=== PATIENT | male | born 1970 | race Caucasian/White ===

== ENCOUNTER 2017-05-14 17:57 | Emergency (ER) | payer MEDICARE, MEDICAID ==
--- NOTE | 2017-05-14 18:09 | Emergency Department Record ---
History of Present Illness - General Chief complaint: Rash Stated complaint: RASH Time Seen by Provider: 05/14/17 18:08 Source: Patient Mode of Arrival: Ambulatory Limitations: No limitations - History of Present Illness Initial comments: The patient is here due to a rash that he has had off and on for 2 weeks. The rash is mainly on the extremities and appears to be small welts that look like bug bites. They are very pruritic and then resolve and he gets new lesions in other areas. The rash is always very itchy. The patient denies any new medicines , pets at home, insect bites or any other patient's with the same rash. He has no hx of similar problems. MD complaint: Lesion, Rash Onset/Timin -: Week(s) Location: Generalized Associated symptoms: Itching Treatments Prior to Arrival: Benadryl, Other - Related Data Home Medications Medication Instructions Recorded Confirmed Last Taken Diphenhydramine HCl [Benadryl] 25 mg PO TID 06/22/15 07/12/15 07/12/15 Previous Rx's Medication Instructions Recorded Gabapentin [Neurontin] 800 mg PO TID #90 tablet 06/22/15 Prednisone [Prednisone 20Mg] 20 mg PO ASDIR #15 tab 05/14/17 Allergies Allergy/AdvReac Type Severity Reaction Status Date / Time codeine Allergy Mild MIGRAINES Unverified 12/02/15 13:00 propoxyphene napsylate Allergy Mild ABDOMINAL Unverified 12/02/15 13:00 [From Darvocet-N] PAIN metaxalone [From Skelaxin] Allergy Unknown PT UNSURE Unverified 12/02/15 13:00 OF REACTION Travel Screening - Travel/Exposure Within Last 30 Days Have you traveled within the last 30 days?: No - Travel/Exposure Within Last Year Have you traveled outside the [place] in the last year?: No Review of Systems Constitutional: Denies: Chills, Fever Eyes: Denies: Eye discharge ENT: Denies: Congestion Respiratory: Denies: Cough, Dyspnea Past Medical History - SOCIAL HISTORY Smoking Status: Former smoker Alcohol Use: Occasional Drug Use: None - RESPIRATORY Hx Respiratory Disorders: No - CARDIOVASCULAR Hx Cardio Disorders: Yes Hx Hypertension: No - NEURO Hx Neuro Disorders: No - GI Hx GI Disorders: Yes Hx Reflux: Yes - Hx Genitourinary Disorders: No - ENDOCRINE Hx Endocrine Disorders: Yes Hx Diabetes: Yes ("they say I am diabetic") - MUSCULOSKELETAL Hx Musculoskeletal Disorders: Yes Hx Back Injury: Yes Comment:: has only 1 bone in R lower leg-removed 1 for bone graft - PSYCH Hx Psych Problems: Yes Hx Anxiety: Yes Comment:: bipolar - HEMATOLOGY/ONCOLOGY Hx Hematology/Oncology Disorders: No Family Medical History Any Significant Family History?: No Family Hx Comment (NOT TO BE USED IN PLACE OF ITEMS BELOW): Arthritis- w/ siblings and parents Hx Depression: Father, Mother, Brother/Sister Hx HTN: Mother, Brother/Sister Physical Exam - General General Appearance: Alert, Oriented x3, Cooperative, No acute distress - Head Head exam: Atraumatic, Normocephalic, Normal inspection - Eye Eye exam: Normal appearance, PERRL - ENT ENT exam: Normal exam, Mucous membranes moist, Normal external ear exam, Normal orophraynx, TM's normal bilaterally Throat exam: Normal inspection. negative: Tonsillar erythema, Tonsillar exudate - Neck Neck exam: Normal inspection, Full ROM. negative: Tenderness - Respiratory Respiratory exam: Normal lung sounds bilaterally. negative: Respiratory distress - Cardiovascular Cardiovascular Exam: Regular rate, Normal rhythm, Normal heart sounds - GI/Abdominal GI/Abdominal exam: Soft, Normal bowel sounds. negative: Tenderness - Extremities Extremities exam: Full ROM, Normal capillary refill. negative: Normal inspection, Tenderness - Neurological Neurological exam: Alert. negative: Motor sensory deficit - Skin Skin exam: Rash (There are small less than one cm welts that are erythematous and appear to be bug bites. They are not tender or warm and do not appear to be infected.) Course Vital Signs 05/14/17 18:00 Temperature 98.2 F Pulse Rate 94 H Respiratory 16 Rate Blood Pressure 143/95 Pulse Ox 98 - Reevaluation(s) Reevaluation #1: I explained to the patient that I am not sure as to what exactly the rash is. He is to use an OTC antihistamine for the itching and to take the Prednisone as directed. He is to see his PCP later this week for recheck. 05/14/17 18:19 Disposition Disposition: Discharge Clinical Impression: Dermatitis Disposition: Home, Self-Care Condition: (1) Good Instructions: Acute Rash (ED) Additional Instructions: Please take Benadryl for the itching and take the Prednisone as directed. Please see your PCP if not better in 2 days. Return to the ER if worse. Prescriptions: Prednisone [Prednisone 20Mg] 20 mg PO ASDIR #15 tab Forms: Patient Portal Access Time of Disposition: 18:21 Quality - Quality Measures Quality Measures: N/A - Blood Pressure Screening View Details: Yes Does Patient Have Any of the Following: No Blood Pressure Classification: Hypertensive Reading Systolic Measurement: 143 Diastolic Measurement: 95 Screening for High Blood Pressure: < Pre-Hypertensive BP, F/U Documented > [ G8950] Pre-Hypertensive Follow-up Interventions: Referral to alternative/primary care provider.
== END 2017-05-14 18:32 | disposition home or self-care (01) ==
LOC: ER 17:57
DX: L30.9 Dermatitis, unspecified (principal)
CPT/HCPCS: 99282

== ENCOUNTER 2017-06-04 15:13 | Emergency (ER) | payer MEDICARE, MEDICAID ==
--- NOTE | 2017-06-04 15:25 | Emergency Department Record ---
History of Present Illness - General Chief complaint: Extremity Problem Stated complaint: RT FOREARM SWELLING/PAIN Time Seen by Provider: 06/04/17 15:23 Source: Patient Mode of Arrival: Ambulatory Limitations: No limitations - History of Present Illness Initial comments: The patient has had pain in his R wrist for about a week. It started with doing a lot of shoveling last week which then leg to some swelling over the medial dorsal wrist. The pain did improve slightly but now is worsening again. The patient feels a grinding in his wrist with ROM. There is no reported fall, fever , redness or any puncture wounds. MD Complaint: Extremity pain Onset/Timin -: Week(s) Location: Right, Arm, Forearm, Hand Severity scale (1-10): 6 Quality: Aching Consistency: Constant Improves with: Rest - Related Data Previous Rx's Medication Instructions Recorded Gabapentin [Neurontin] 800 mg PO TID #90 tablet 06/22/15 Allergies Allergy/AdvReac Type Severity Reaction Status Date / Time codeine Allergy Mild MIGRAINES Verified 06/04/17 15:22 propoxyphene napsylate Allergy Mild ABDOMINAL Verified 06/04/17 15:22 [From Darvocet-N] PAIN metaxalone [From Skelaxin] Allergy Unknown PT UNSURE Verified 06/04/17 15:22 OF REACTION Travel Screening - Travel/Exposure Within Last 30 Days Have you traveled within the last 30 days?: No - Travel/Exposure Within Last Year Have you traveled outside the [place] in the last year?: No - Additonal Travel Details Have you been exposed to anyone with a communicable illness?: No - Travel Symptoms Symptom Screening: None Review of Systems Constitutional: Denies: Chills, Fever Past Medical History - SOCIAL HISTORY Smoking Status: Former smoker Alcohol Use: None Drug Use: None - RESPIRATORY Hx Respiratory Disorders: No - CARDIOVASCULAR Hx Cardio Disorders: Yes Hx Hypertension: No - NEURO Hx Neuro Disorders: No - GI Hx GI Disorders: Yes Hx Reflux: Yes - Hx Genitourinary Disorders: No - ENDOCRINE Hx Endocrine Disorders: Yes Hx Diabetes: Yes ("they say I am diabetic") - MUSCULOSKELETAL Hx Musculoskeletal Disorders: Yes Hx Back Injury: Yes Comment:: has only 1 bone in R lower leg-removed 1 for bone graft - PSYCH Hx Psych Problems: Yes Hx Anxiety: Yes Comment:: bipolar - HEMATOLOGY/ONCOLOGY Hx Hematology/Oncology Disorders: No Family Medical History Any Significant Family History?: Yes Family Hx Comment (NOT TO BE USED IN PLACE OF ITEMS BELOW): Arthritis- w/ siblings and parents Hx Depression: Father, Mother, Brother/Sister Hx HTN: Mother, Brother/Sister Physical Exam - General General Appearance: Alert, Oriented x3, Cooperative, No acute distress - Head Head exam: Atraumatic - Extremities Extremities exam: Normal inspection, Full ROM, Tenderness (There is tenderness over the abductor pollicus longus and extensor pollicis brevis tendons.), Other (There is a positive Shweta maneuver.). negative: Joint swelling Course Vital Signs 06/04/17 15:17 Temperature 98.4 F Pulse Rate 79 Respiratory 16 Rate Blood Pressure 140/84 Pulse Ox 100 - Reevaluation(s) Reevaluation #1: I did explain to the patient that I feel he has DeQuirvain's tenosynovitis. He is to use the splint and Tylenol and see his PCP if not better by next week. 06/04/17 15:56 Medical Decision Making - Data Complexity MDM Data: X-Ray Ordered and/or Reviewed - Radiology Data Radiology results: Report reviewed (R wrist: Neg.) Disposition Disposition: Discharge Clinical Impression: Tenosynovitis of forearm Disposition: Home, Self-Care Condition: (1) Good Instructions: De Quervain Disease (ED) Additional Instructions: Please use the splint for 2 weeks and take Tylenol for pain. Please ice the affected area every 2 hours while awake. Please see your PCP if not better in 7 days. Forms: Patient Portal Access Time of Disposition: 15:57 Quality - Quality Measures Quality Measures: N/A - Blood Pressure Screening View Details: Yes Does Patient Have Any of the Following: No Blood Pressure Classification: Pre-Hypertensive BP Reading Systolic Measurement: 140 Diastolic Measurement: 84 Screening for High Blood Pressure: < Pre-Hypertensive BP, F/U Documented > [ G8950] Pre-Hypertensive Follow-up Interventions: Referral to alternative/primary care provider.
--- NOTE | 2017-06-05 07:46 | RADIOLOGY REPORT ---
EXAM: RIGHT WRIST COMPLETE HISTORY: RIGHT WRIST PAIN FOR ONE WEEK AFTER SHOVELING DIRT. PAIN ON RADIAL SIDE. TECHNIQUE: Four views of the right wrist were obtained. Comparison: Four views of the right wrist dated 06/08/13. Encounter: Initial. FINDINGS: There is normal bone mineralization. No acute fracture, dislocation , or destructive bone lesion is seen. The articular relations are grossly maintained with the exception of mild hypertrophic degenerative changes of the first MCP joint. IMPRESSION: 1. NO ACUTE BONE NOR JOINT ABNORMALITY. 2. DEGENERATIVE CHANGES OF THE FIRST MCP JOINT, MILD IN DEGREE. JOB NUMBER: [id number] MTDD
== END 2017-06-04 16:10 | disposition home or self-care (01) ==
LOC: ER 15:13
DX: M65.4 Radial styloid tenosynovitis [de Quervain] (principal)
CPT/HCPCS: 99283

== ENCOUNTER 2018-01-16 15:16 | Emergency (ER) | payer MEDICARE, MEDICAID ==
--- NOTE | 2018-01-16 15:37 | Emergency Department Record ---
History of Present Illness - General Chief complaint: Extremity Problem Stated complaint: RT ANKLE PAIN/SWELLING Time Seen by Provider: 01/16/18 15:19 Source: Patient, RN notes reviewed Mode of Arrival: Ambulatory - History of Present Illness Initial comments: wrestling with kids 7 days ago and still painful on the lateral side of the right ankle and swelling gradually worse since than. PMK the fibular bone remomed for a bone graft in his right hip(2002) [facility]. Patient has used tylenol for pain since . PSH gastric bipass 2016 [facility] and lost 85 pounds. PMH low back pain and buldging disks and using gabapentin for that. [facility] pain management Onset/Timin -: Week(s) Location: Right, Ankle History of Same: No Radiation: None Severity scale (1-10): 5 Quality: Sharp Consistency: Constant Improves with: Elevation, Immobilization Worsens with: Walking, Weight bearing Associated Symptoms: Denies other symptoms - Related Data Home Medications Medication Instructions Recorded Confirmed Last Taken Pantoprazole Sodium [Protonix] 20 mg PO DAILY 01/16/18 01/16/18 01/16/18 Previous Rx's Medication Instructions Recorded Gabapentin [Neurontin] 800 mg PO TID #90 tablet 06/22/15 Allergies Allergy/AdvReac Type Severity Reaction Status Date / Time codeine Allergy Mild MIGRAINES Verified 01/16/18 15:18 propoxyphene napsylate Allergy Mild ABDOMINAL Verified 01/16/18 15:18 [From Darvocet-N] PAIN metaxalone [From Skelaxin] Allergy Unknown PT UNSURE Verified 01/16/18 15:18 OF REACTION Travel Screening - Travel/Exposure Within Last 30 Days Have you traveled within the last 30 days?: No - Travel/Exposure Within Last Year Have you traveled outside the [place] in the last year?: No - Additonal Travel Details Have you been exposed to anyone with a communicable illness?: No - Travel Symptoms Symptom Screening: None Review of Systems Reviewed: No additional complaints except as noted below Constitutional: Reports: As per HPI. Denies: Chills, Fever, Malaise, Night sweats, Weakness, Weight change Eyes: Reports: As per HPI. Denies: Eye discharge, Eye pain, Photophobia, Vision change ENT: Reports: As per HPI. Denies: Congestion, Dental pain, Ear pain, Epistaxis , Hearing loss, Throat pain Respiratory: Reports: As per HPI. Denies: Cough, Dyspnea, Hemoptysis, Stridor, Wheezes Cardiovascular: Reports: As per HPI. Denies: Arrhythmia, Chest pain, Dyspnea on exertion, Edema, Murmurs, Orthopnea, Palpitations, Paroxysmal nocturnal dyspnea, Rheumatic Fever, Syncope Endocrine: Reports: As per HPI. Denies: Fatigue, Heat or cold intolerance, Polydipsia, Polyuria Gastrointestinal: Reports: As per HPI. Denies: Abdominal pain, Constipation, Diarrhea, Hematemesis, Hematochezia, Melena, Nausea, Vomiting Genitourinary: Reports: As per HPI. Denies: Dysuria, Frequency, Hematuria, Incontinence, Retention, Testicular pain, Testicular mass, Urgency Musculoskeletal: Reports: As per HPI. Denies: Arthralgia, Back pain, Gout, Joint swelling, Myalgia, Neck pain Skin: Reports: As per HPI. Denies: Bruising, Change in color, Change in hair/ nails, Lesions, Pruritus, Rash Neurological: Reports: As per HPI. Denies: Abnormal gait, Confusion, Headache, Numbness, Paresthesias, Seizure, Tingling, Tremors, Vertigo, Weakness Psychiatric: Reports: As per HPI. Denies: Anxiety, Auditory hallucinations, Depression, Homicidal thoughts, Suicidal thoughts, Visual hallucinations Hematological/Lymphatic: Reports: As per HPI. Denies: Anemia, Blood Clots, Easy bleeding, Easy bruising, Swollen glands Past Medical History - SOCIAL HISTORY Smoking Status: Former smoker Alcohol Use: Occasional Drug Use: None - RESPIRATORY Hx Respiratory Disorders: No - CARDIOVASCULAR Hx Cardio Disorders: Yes Hx Hypertension: No - NEURO Hx Neuro Disorders: No - GI Hx GI Disorders: Yes Hx Reflux: Yes - Hx Genitourinary Disorders: No - ENDOCRINE Hx Endocrine Disorders: Yes Hx Diabetes: Yes ("they say I am diabetic") - MUSCULOSKELETAL Hx Musculoskeletal Disorders: Yes Hx Back Injury: Yes Comment:: has only 1 bone in R lower leg-removed 1 for bone graft - PSYCH Hx Psych Problems: Yes Hx Anxiety: Yes Comment:: bipolar - HEMATOLOGY/ONCOLOGY Hx Hematology/Oncology Disorders: No Family Medical History Any Significant Family History?: Yes Family Hx Comment (NOT TO BE USED IN PLACE OF ITEMS BELOW): Arthritis- w/ siblings and parents Hx Depression: Father, Mother, Brother/Sister Hx HTN: Mother, Brother/Sister Physical Exam - General General Appearance: Alert, Oriented x3, Cooperative, Mild distress - Head Head exam: Normal inspection - Eye Eye exam: Normal appearance, PERRL Pupils: Normal accommodation - ENT ENT exam: Normal exam, Mucous membranes moist, Normal external ear exam, Normal orophraynx, TM's normal bilaterally Ear exam: Normal external inspection. negative: External canal tenderness Nasal Exam: Normal inspection. negative: Discharge, Sinus tenderness Mouth exam: Normal external inspection, Tongue normal Teeth exam: Normal inspection. negative: Dental caries Throat exam: Normal inspection. negative: Tonsillar erythema, Tonsillar exudate - Neck Neck exam: Normal inspection, Full ROM. negative: Tenderness - Respiratory Respiratory exam: Normal lung sounds bilaterally. negative: Respiratory distress - Cardiovascular Cardiovascular Exam: Regular rate, Normal rhythm, Normal heart sounds - GI/Abdominal GI/Abdominal exam: Soft, Normal bowel sounds. negative: Tenderness - Rectal Rectal exam: Deferred - exam: Deferred - Extremities Extremities exam: Full ROM, Normal capillary refill, Tenderness (lateral ankle pain and some edema of lower leg), Other (pulses are present multiple scars on right lower leg because bone removed for a bone graft in his hip) - Back Back exam: Reports: Normal inspection, Full ROM. Denies: Muscle spasm, Rash noted, Tenderness - Neurological Neurological exam: Alert, Normal gait, Oriented X3, Reflexes normal - Psychiatric Psychiatric exam: Normal affect, Normal mood - Skin Skin exam: Dry, Intact, Normal color, Warm Course xray of right ankle no fractures seen but most of fibula gone from 3 inches above the lateral malleolus. Medical Decision Making - Data Complexity MDM Data: X-Ray Ordered and/or Reviewed (venous dopler neg for a DVT not complete exam because of distorted anatomy from previous surgery) Disposition Clinical Impression: Ankle sprain Qualifiers: Encounter type: initial encounter Involved ligament of ankle: posterior talofibular ligament Laterality: right Qualified Code(s): S93.491A - Sprain of other ligament of right ankle, initial encounter Disposition: Home, Self-Care Condition: (1) Good Instructions: Ankle Sprain (ED) Additional Instructions: tylenol for pain follow up with a family DrAlyson in one week Forms: Patient Portal Access Time of Disposition: 16:53 Quality - Quality Measures Quality Measures: N/A - Blood Pressure Screening Does Patient Have Any of the Following: No Systolic Measurement: ~ Screening for High Blood Pressure: < Normal BP, F/U Not Required > [G3050]
--- NOTE | 2018-01-17 21:18 | US VENOUS DOPPLER REPORT ---
EXAM: ULTRASOUND VENOUS DOPPLER LOWER EXT RT HISTORY: PATIENT FELL WITH WORSENING RIGHT LEG PAIN, POSSIBLE DVT. TECHNIQUE: Venous Doppler ultrasound of the right lower extremity performed with color-flow and spectral analysis. Compression and flow augmentation was utilized in the thigh and popliteal region as well. COMPARISON: None. FINDINGS: Flow is seen throughout the common and superficial femoral vein as well as popliteal vein and also the anterior and posterior tibial veins with no clot identified. There was compressibility and flow augmentation within the thigh and popliteal region as well. The peroneal vein within the calf was not clearly identified. IMPRESSION: 1. NO DVT IDENTIFIED IN THE RIGHT LOWER EXTREMITY, DESCRIBED ABOVE. 2. THE PERONEAL VEIN IN THE CALF WAS NOT CLEARLY VISUALIZED, OF UNCERTAIN SIGNIFICANCE. JOB NUMBER: [id number] MTDD
--- NOTE | 2018-01-17 21:21 | RADIOLOGY REPORT ---
EXAM: ANKLE RIGHT 3 VIEWS HISTORY: TWISTED RIGHT ANKLE A WEEK AGO WITH ANKLE PAIN. HISTORY OF PRIOR PARTIAL FIBULAR RESECTION FOR BONE GRAFTING. TECHNIQUE: Three views right ankle. COMPARISON: Right lower leg 06/27/15. No prior right ankle series with which to compare. ENCOUNTER: Initial. FINDINGS: There is mild soft tissue swelling at the ankle, particularly laterally. No definite acute fracture or dislocation of the ankle evident. There is resection of the shaft of the fibula beginning approximately 8 cm above the level of the tip of the lateral malleolus and extending proximally throughout the visualized length of calf included. This was the case back on as well. IMPRESSION: 1. SOFT TISSUE SWELLING LATERALLY AT THE ANKLE. 2. NO ACUTE FRACTURE OF THE RIGHT ANKLE EVIDENT. 3. RESECTION OF THE LOWER SHAFT OF THE FIBULA, BEFORE. JOB NUMBER: [id number] MTDD
== END 2018-01-16 17:02 | disposition home or self-care (01) ==
LOC: ER 15:16
DX: S93.491A Sprain of other ligament of right ankle, initial encounter (principal); R60.0 Localized edema; X50.1XXA Overexertion from prolonged static or awkward postures, initial encounter; E11.9 Type 2 diabetes mellitus without complications; Y93.83 Activity, rough housing and horseplay; Z98.84 Bariatric surgery status; Z87.891 Personal history of nicotine dependence
CPT/HCPCS: 99283; 99284

== ENCOUNTER 2018-02-22 16:09 | Emergency (ER) | payer MEDICARE, MEDICAID ==
--- NOTE | 2018-02-22 16:19 | Emergency Department Record ---
History of Present Illness - General Chief Complaint: Ankle/Foot Injury Stated Complaint: ANKLE INJURY Time Seen by Provider: 02/22/18 16:14 Source: Patient Mode of Arrival: Ambulatory Limitations: No limitations - History of Present Illness Initial Comments: 47 yo male presents with lateral right foot pain about one month after an injury. He was "messing around" with friend and hurt his foot. The area hurts intermittently if he over dose it or if he does not use his splint. He points to the lateral foot. He had an ankle XR initially that was negative. No new injuries. He is on disability nad does not have to stand for prolonged periods of time. PCP is the [facility]. MD Complaint: Foot injury -: Month(s) (1) Injury: Foot: Right Type of Injury: Other Place: Home Severity: Mild Improves With: Immobilization Worsens With: Weight bearing Context: Fall Other Symptoms: Other Associated Symptoms: Ambulatory, Able to partially bear weight Treatments Prior to Arrival: Other - Related Data Previous Rx's Medication Instructions Recorded Gabapentin [Neurontin] 800 mg PO TID #90 tablet 06/22/15 Allergies Allergy/AdvReac Type Severity Reaction Status Date / Time codeine Allergy Mild MIGRAINES Verified 02/22/18 16:16 propoxyphene napsylate Allergy Mild ABDOMINAL Verified 02/22/18 16:16 [From Darvocet-N] PAIN metaxalone [From Skelaxin] Allergy Unknown PT UNSURE Verified 02/22/18 16:16 OF REACTION Review of Systems Constitutional: Denies: Chills, Fever Eyes: Denies: Vision change ENT: Denies: Congestion, Throat pain Respiratory: Denies: Cough, Dyspnea Cardiovascular: Denies: Chest pain Endocrine: Denies: Fatigue Gastrointestinal: Denies: Abdominal pain, Diarrhea, Nausea, Vomiting Genitourinary: Denies: Frequency, Hematuria Musculoskeletal: Reports: As per HPI, Arthralgia Skin: Denies: Bruising, Change in color, Rash Neurological: Denies: Numbness, Tingling, Weakness Psychiatric: Denies: Anxiety Hematological/Lymphatic: Denies: Easy bleeding, Easy bruising, Swollen glands Past Medical History - SOCIAL HISTORY Smoking Status: Former smoker Drug Use: None - RESPIRATORY Hx Respiratory Disorders: No - CARDIOVASCULAR Hx Cardio Disorders: Yes Hx Hypertension: No - NEURO Hx Neuro Disorders: No - GI Hx GI Disorders: Yes Hx Reflux: Yes - Hx Genitourinary Disorders: No - ENDOCRINE Hx Endocrine Disorders: Yes Hx Diabetes: Yes ("they say I am diabetic") - MUSCULOSKELETAL Hx Musculoskeletal Disorders: Yes Hx Back Injury: Yes Comment:: has only 1 bone in R lower leg-removed 1 for bone graft - PSYCH Hx Psych Problems: Yes Hx Anxiety: Yes Comment:: bipolar - HEMATOLOGY/ONCOLOGY Hx Hematology/Oncology Disorders: No Family Medical History Family Hx Comment (NOT TO BE USED IN PLACE OF ITEMS BELOW): Arthritis- w/ siblings and parents Hx Depression: Father, Mother, Brother/Sister Hx HTN: Mother, Brother/Sister Physical Exam - General General Appearance: Alert, Oriented x3, Cooperative, No acute distress Limitations: No limitations - Head Head exam: Atraumatic, Normal inspection - Eye Eye exam: Normal appearance - ENT ENT exam: Normal exam Ear exam: Normal external inspection Nasal Exam: Normal inspection Mouth exam: Normal external inspection - Neck Neck exam: Normal inspection - Respiratory Respiratory exam: Normal lung sounds bilaterally. negative: Respiratory distress - Cardiovascular Cardiovascular Exam: Regular rate, Normal rhythm, Normal heart sounds Peripheral Pulses: 2+: Dorsalis Pedis (R) - Rectal Rectal exam: Deferred - exam: Deferred - Extremities Extremities exam: Normal inspection, Full ROM, Normal capillary refill, Tenderness. negative: Calf tenderness, Joint swelling, Pedal edema Image of Feet: 1 - tender laterally, normal inspection, no swelling, no palpable bony abnormality. - Back Back exam: Reports: Full ROM - Neurological Neurological exam: Alert, Oriented X3 - Psychiatric Psychiatric exam: Normal affect, Normal mood - Skin Skin exam: Dry, Intact, Normal color, Warm Course - Reevaluation(s) Reevaluation #1: 02/22/18 16:41 The XR was negative for acute process. No fracture The patient has no pain with the ankle splint He will continue the splint and follow up with his PCP His PCP can decide if PT would help or further imaging. Disposition Disposition: Discharge Clinical Impression: Foot pain, right Disposition: Home, Self-Care Condition: (1) Good Instructions: Arthralgia (ED) Additional Instructions: See your family doctor for a recheck If the foot/ankle still hurt your may consider further imaging, referral to ortho or physical therapy Use your splint for support. Forms: Patient Portal Access Time of Disposition: 16:43 Quality - Quality Measures Quality Measures: N/A - Blood Pressure Screening Does Patient Have Any of the Following: No Blood Pressure Classification: Hypertensive Reading Systolic Measurement: 158 Diastolic Measurement: 106 Screening for High Blood Pressure: < Pre-Hypertensive BP, F/U Documented > [ G8950] Pre-Hypertensive Follow-up Interventions: Referral to alternative/primary care provider.
--- NOTE | 2018-02-24 22:21 | RADIOLOGY REPORT ---
EXAM: FOOT, RIGHT 3 VIEWS HISTORY: LATERAL FOOT PAIN. TECHNIQUE: Three views of the right foot. COMPARISON: None. FINDINGS: Osteopenia. Degenerative changes of the first MTP joint. Negative for acute fracture or dislocation. Surgical clips are noted in the leg distally. There is partial visualization of a fibular resection. IMPRESSION: NO ACUTE ABNORMALITY. JOB NUMBER: [id number] MTDD
== END 2018-02-22 16:50 | disposition home or self-care (01) ==
LOC: ER 16:09
DX: G89.11 Acute pain due to trauma (principal); M79.671 Pain in right foot; Y93.83 Activity, rough housing and horseplay; Y92.009 Unspecified place in unspecified non-institutional (private) residence as the place of occurrence of the external cause
CPT/HCPCS: 99283

== ENCOUNTER 2018-09-06 02:27 | Emergency (ER) | payer MEDICARE, MEDICAID ==
[2018-09-06] MEDS ORDERED: KETOROLAC 30 MG/ML VIAL IVP ONE (02:41)
[2018-09-06 02:43] LABS: URINE APPEARANCE CLEAR; URINE BILIRUBIN SMALL (NEGATIVE); URINE BLOOD LARGE (NEGATIVE); URINE COLOR YELLOW; URINE GLUCOSE (UA) NEGATIVE (NEGATIVE); URINE KETONE NEGATIVE (NEGATIVE); URINE LEUKOCYTE ESTERASE NEGATIVE (NEGATIVE); URINE NITRITE NEGATIVE (NEGATIVE); URINE PROTEIN TRACE (NEGATIVE); URINE UROBILINOGEN 0.2 E.U./dL (0.20 - 1.00)
--- NOTE | 2018-09-06 02:43 | Emergency Department Record ---
History of Present Illness - General Chief complaint: Flank Pain Stated complaint: FLANK PAIN Time Seen by Provider: 09/06/18 02:37 Source: Patient Mode of Arrival: Ambulatory Limitations: No limitations - History of Present Illness Initial comments: 48 yo male presents with one day of left flank pain. The pain seems to come and go. It is sharp in nature. He has had some vague discomfort with urination. The urine has appears darker the last day as well. No fevers or chills. No vomiting or diarrhea. No testicular pain. He reports several years ago he did have a renal stone that passed without complication. PCP is the [facility]. MD Complaint: Dysuria, Other (Left Flank pain) -: Days(s) Location: Left flank Radiation: L flank Severity: Moderate Quality: Aching Consistency: Constant Improves with: None Worsens with: None Other Reports: Dysuria - Related Data Home Medications Medication Instructions Recorded Confirmed Last Taken Gabapentin [Neurontin] 800 mg PO DAILY 09/06/18 09/06/18 Unknown Previous Rx's Medication Instructions Recorded Hydrocodone/APAP 5/325Mg [Offerman 1 each PO Q6H #10 tab 09/06/18 5Mg/325Mg] Tamsulosin HCl [Flomax] 0.4 mg PO DAILY #7 cap.er.24h 09/06/18 Allergies Allergy/AdvReac Type Severity Reaction Status Date / Time codeine Allergy Mild MIGRAINES Verified 02/22/18 16:16 propoxyphene napsylate Allergy Mild ABDOMINAL Verified 02/22/18 16:16 [From Darvocet-N] PAIN metaxalone [From Skelaxin] Allergy Unknown PT UNSURE Verified 02/22/18 16:16 OF REACTION Review of Systems Constitutional: Denies: Chills, Fever, Malaise, Weakness Eyes: Denies: Vision change ENT: Denies: Congestion, Throat pain Respiratory: Denies: Cough Cardiovascular: Denies: Chest pain, Syncope Endocrine: Denies: Fatigue Gastrointestinal: Reports: As per HPI, Abdominal pain. Denies: Constipation, Diarrhea, Hematemesis, Hematochezia, Melena, Nausea, Vomiting Genitourinary: Reports: Dysuria, Frequency. Denies: Hematuria, Incontinence, Retention, Testicular pain, Urgency Musculoskeletal: Reports: As per HPI, Back pain. Denies: Arthralgia Skin: Denies: Bruising, Change in color, Rash Neurological: Denies: Confusion, Headache, Weakness Psychiatric: Denies: Anxiety Hematological/Lymphatic: Denies: Easy bleeding, Easy bruising Past Medical History - SOCIAL HISTORY Smoking Status: Former smoker Drug Use: None - RESPIRATORY Hx Respiratory Disorders: No - CARDIOVASCULAR Hx Cardio Disorders: Yes Hx Hypertension: No - NEURO Hx Neuro Disorders: No - GI Hx GI Disorders: Yes Hx Reflux: Yes - Hx Genitourinary Disorders: No - ENDOCRINE Hx Endocrine Disorders: Yes Hx Diabetes: Yes ("they say I am diabetic") - MUSCULOSKELETAL Hx Musculoskeletal Disorders: Yes Hx Back Injury: Yes Comment:: has only 1 bone in R lower leg-removed 1 for bone graft - PSYCH Hx Psych Problems: Yes Hx Anxiety: Yes Comment:: bipolar - HEMATOLOGY/ONCOLOGY Hx Hematology/Oncology Disorders: No Family Medical History Family Hx Comment (NOT TO BE USED IN PLACE OF ITEMS BELOW): Arthritis- w/ siblings and parents Hx Depression: Father, Mother, Brother/Sister Hx HTN: Mother, Brother/Sister Physical Exam - General General Appearance: Alert, Oriented x3, Cooperative, No acute distress Limitations: No limitations - Head Head exam: Atraumatic, Normal inspection - Eye Eye exam: Normal appearance. negative: Conjunctival injection - ENT ENT exam: Normal exam, Mucous membranes moist Ear exam: Normal external inspection Nasal Exam: Normal inspection Mouth exam: Normal external inspection - Neck Neck exam: Normal inspection - Respiratory Respiratory exam: Normal lung sounds bilaterally. negative: Respiratory distress - Cardiovascular Cardiovascular Exam: Regular rate, Normal rhythm, Normal heart sounds - GI/Abdominal GI/Abdominal exam: Soft. negative: Distended, Guarding, Tenderness - Rectal Rectal exam: Deferred - exam: Deferred - Extremities Extremities exam: Normal inspection - Back Back exam: Reports: Normal inspection, CVA tenderness (L), Full ROM. Denies: CVA tenderness (R) - Neurological Neurological exam: Alert, Oriented X3 - Psychiatric Psychiatric exam: Normal affect, Normal mood. negative: Agitated, Anxious - Skin Skin exam: Dry, Intact, Normal color, Warm. negative: Rash Course - Reevaluation(s) Reevaluation #1: 09/06/18 03:04 The CBC was reviewed. No significant changes The BMP was reviewed. No significant changes The UA is positive for blood. 09/06/18 03:[address] was reviewed. mild left hydrouerter. some limitation by artifact from hip arthroplasty but likely 4mm left UVJ stone. His pain is controlled. No signs of infection. We discussed the diagnosis, reasons to immediately return and home care. He was given analgesia and a strainer We discussed reasons to return to the ED as well. Medical Decision Making - Lab Data Result diagrams: 09/06/18 02:44 09/06/18 02:41 Disposition Disposition: Discharge Clinical Impression: Ureteral calculi Disposition: Home, Self-Care Condition: (1) Good Instructions: Renal Colic (ED) Additional Instructions: Return to the ED if you have fever, vomiting, or uncontrolled pain Strain your urine when you urinate looking for blood Prescriptions: Hydrocodone/APAP 5/325Mg [Offerman 5Mg/325Mg] 1 each PO Q6H #10 tab Tamsulosin HCl [Flomax] 0.4 mg PO DAILY #7 cap.er.24h Referrals: TAWNY FREY M.D. [MEDICAL DOCTOR] - [facility] [Provider Group] Forms: Patient Portal Access Time of Disposition: 03:37 Quality - Quality Measures Quality Measures: N/A - Blood Pressure Screening Does Patient Have Any of the Following: No Blood Pressure Classification: Hypertensive Reading Systolic Measurement: 147 Diastolic Measurement: 96 Screening for High Blood Pressure: < Pre-Hypertensive BP, F/U Documented > [ G8950] Pre-Hypertensive Follow-up Interventions: Referral to alternative/primary care provider.
[2018-09-06 02:44] LABS: URINE BACTERIA NONE SEEN; URINE EPITHELIAL CELLS 0 - 2 (FEW); URINE WBC 0 - 2 (0-2/hpf)
[2018-09-06 02:49] LABS: HEMATOCRIT 47.3 % (42.0-52.0); HEMOGLOBIN 16.2 gm/dl (14.0-18.0); MEAN CELL VOLUME 96.5 fl (81-97); MEAN CORPUSCULAR HEMOGLOBIN 33.1 pg (27-33); MEAN CORPUSCULAR HGB CONC 34.2 g/dl (32-36); MEAN PLATELET VOLUME 9.6 fl (7.4-10.4); PLATELET COUNT 179 K/uL (130-400); RED CELL DISTRIBUTION WIDTH 13.2 % (11.5-14.5); WHITE BLOOD COUNT W/O DIFF 5.2 K/uL (4.2-12.2)
[2018-09-06 02:57] LABS: BLOOD UREA NITROGEN 12 mg/dL (6-20); CREATININE 0.9 mg/dL (0.7-1.2); EST GLOMERULAR FILTRATION RATE > 60 mL/min
[2018-09-06 03:00] LABS: GLUCOSE,RANDOM 92 mg/dL (74-109)
[2018-09-06] MEDS ORDERED: TAMSULOSIN HCL 0.4 MG CAP.ER.24H PO ONE (03:37)
[2018-09-06] MEDS ORDERED: HYDROCODONE/APAP 5/325MG TABLET PO ONE (03:42)
--- NOTE | 2018-09-08 19:58 | CT SCAN REPORT ---
EXAM: CT SCAN ABDOMEN/PELVIS WO CONTRAST HISTORY: LEFT FLANK PAIN, HEMATURIA. TECHNIQUE: Noncontrast CT abdomen and pelvis. COMPARISON: None. FINDINGS: Portions of the left body wall and peripheral left abdomen/pelvis are not fully included in the field of view. Lung bases clear. Diffuse liver low attenuation compatible with hepatic steatosis. Cholelithiasis. Unremarkable appearance of the adrenal glands and spleen. Unremarkable appearance of the pancreas. Mild left hydroureteronephrosis. There appears to be a 4 to 5 mm calculus in the distal left ureter near the ureterovesicular junction; visualization at this level is significantly limited by bilateral hip arthroplasty beam- hardening artifact. The bladder is not well seen. No focal colonic thickening or inflammatory changes. Appendix is normal. Stomach and small bowel are nondilated. Postsurgical changes in the stomach. Small hiatal hernia. No free air or free fluid detected. Abdominal aorta appears nondilated. No definite acute osseous findings. IMPRESSION: 1. MILD LEFT HYDRONEPHROSIS, WHICH APPEARS TO BE RELATED TO A LIKELY 4 TO 5 MM CALCULUS IN THE REGION OF THE DISTAL LEFT URETER NEAR THE URETEROVESICULAR JUNCTION. VISUALIZATION OF THE PELVIS IS LIMITED DUE TO BILATERAL HIP ARTHROPLASTY ARTIFACT. 2. HEPATIC STEATOSIS. 3. CHOLELITHIASIS. JOB NUMBER: [id number] [facility]
== END 2018-09-06 03:57 | disposition home or self-care (01) ==
LOC: ER 02:27
DX: N13.2 Hydronephrosis with renal and ureteral calculous obstruction (principal); R30.0 Dysuria; Z87.891 Personal history of nicotine dependence; Z87.442 Personal history of urinary calculi
CPT/HCPCS: 99284 ×2; 96372; 80048; 81001; 85027; 74176; J1885

== ENCOUNTER 2019-02-26 18:01 | Emergency (ER) | payer MEDICARE, MEDICAID ==
--- NOTE | 2019-02-26 18:25 | Emergency Department Record ---
History of Present Illness - General Chief Complaint: Cough Stated Complaint: CHEST CONGESTION,COUGH Time Seen by Provider: 02/26/19 18:05 Source: Patient Mode of Arrival: Ambulatory Limitations: No limitations - History of Present Illness Initial Comments: The patient is here due to a 5 day hx of cough and congestion with mild wheezing today. He has been coughing up colored sputum at times. The patient denies any CP, SOB, fever, or IVAN. MD Complaint: Cough, Nasal congestion, Rhinorrhea Onset/Timin -: Days(s) Severity: Moderate Severity scale (1-10): 5 Consistency: Constant - Related Data Previous Rx's Medication Instructions Recorded Albuterol Sulfate [Proair Hfa] 2 puff IH QID PRN #1 inhaler 02/26/19 Azithromycin [Zithromax] 250 mg PO ASDIR #6 tab 02/26/19 Allergies Allergy/AdvReac Type Severity Reaction Status Date / Time codeine Allergy Mild MIGRAINES Verified 02/26/19 18:13 propoxyphene napsylate Allergy Mild ABDOMINAL Verified 02/26/19 18:13 [From Darvocet-N] PAIN metaxalone [From Skelaxin] Allergy Unknown PT UNSURE Verified 02/26/19 18:13 OF REACTION Travel Screening - Travel/Exposure Within Last 30 Days Have you traveled within the last 30 days?: No - Travel/Exposure Within Last Year Have you traveled outside the [place] in the last year?: No - Additonal Travel Details Have you been exposed to anyone with a communicable illness?: No - Travel Symptoms Symptom Screening: None Review of Systems Constitutional: Reports: Malaise. Denies: Chills, Fever Eyes: Denies: Eye discharge ENT: Reports: Congestion Respiratory: Reports: Cough. Denies: Dyspnea, Hemoptysis Cardiovascular: Denies: Arrhythmia, Chest pain, Dyspnea on exertion Endocrine: Denies: Fatigue Past Medical History - SOCIAL HISTORY Smoking Status: Former smoker Alcohol Use: Occasional Drug Use: None - RESPIRATORY Hx Respiratory Disorders: No - CARDIOVASCULAR Hx Cardio Disorders: Yes Hx Hypertension: Yes - NEURO Hx Neuro Disorders: No - GI Hx GI Disorders: Yes Hx Reflux: Yes - Hx Genitourinary Disorders: Yes Hx Kidney Stones: Yes - ENDOCRINE Hx Endocrine Disorders: Yes Hx Diabetes: Yes ("they say I am diabetic") - MUSCULOSKELETAL Hx Musculoskeletal Disorders: Yes Hx Back Injury: Yes Comment:: has only 1 bone in R lower leg-removed 1 for bone graft - PSYCH Hx Psych Problems: Yes Hx Anxiety: Yes Comment:: bipolar - HEMATOLOGY/ONCOLOGY Hx Hematology/Oncology Disorders: No Family Medical History Any Significant Family History?: Yes Family Hx Comment (NOT TO BE USED IN PLACE OF ITEMS BELOW): Arthritis- w/siblings and parents Hx Depression: Father, Mother, Brother/Sister Hx HTN: Mother, Brother/Sister Physical Exam - General General Appearance: Alert, Oriented x3, Cooperative, No acute distress - Head Head exam: Atraumatic, Normocephalic, Normal inspection - Eye Eye exam: Normal appearance, PERRL, EOMI - ENT ENT exam: Normal exam, Mucous membranes moist, Normal external ear exam, Normal orophraynx, TM's normal bilaterally Throat exam: Normal inspection. negative: Tonsillar erythema, Tonsillar exudate - Neck Neck exam: Normal inspection, Full ROM. negative: Tenderness - Respiratory Respiratory exam: Normal lung sounds bilaterally. negative: Respiratory distress - Cardiovascular Cardiovascular Exam: Regular rate, Normal rhythm, Normal heart sounds - GI/Abdominal GI/Abdominal exam: Soft, Normal bowel sounds. negative: Tenderness - Extremities Extremities exam: Normal inspection, Full ROM, Normal capillary refill. negative: Tenderness - Neurological Neurological exam: Alert. negative: Motor sensory deficit Course Vital Signs 02/26/19 18:14 Temperature 98.4 F Pulse Rate 84 Respiratory 20 Rate Blood Pressure 154/105 Pulse Ox 98 - Reevaluation(s) Reevaluation #1: I did discuss the need to take the Zpak and Albuterol inhaller as directed. He is also to take an OTC cough and cold medicine and is to see his PCP next week if not better. 02/26/19 18:26 Disposition Disposition: Discharge Clinical Impression: Bronchitis Disposition: Home, Self-Care Condition: (2) Stable Instructions: Cold Symptoms (ED) Additional Instructions: Please take the ZPak with the Albuterol inaller along with an OTC cough and cold medicine. Please see your family doctor for recheck next week if not better. Please return to the ER for any worsening symptoms. Please also follow up with your family doctor to recheck your blood pressure next week. Prescriptions: Albuterol Sulfate [Proair Hfa] 2 puff IH QID PRN #1 inhaler PRN Reason: Cough And Difficulty Breathing Azithromycin [Zithromax] 250 mg PO ASDIR #6 tab Forms: Patient Portal Access Time of Disposition: 18:28 Quality - Quality Measures Quality Measures: N/A - Blood Pressure Screening View Details: Yes Does Patient Have Any of the Following: Active Dx of HTN Blood Pressure Classification: Hypertensive Reading Systolic Measurement: 154 Diastolic Measurement: 105 Screening for High Blood Pressure: Patient Exclusion, Hx of HTN [G9744]
== END 2019-02-26 18:39 | disposition home or self-care (01) ==
LOC: ER 18:01
DX: J20.9 Acute bronchitis, unspecified (principal); I10 Essential (primary) hypertension; Z87.891 Personal history of nicotine dependence
CPT/HCPCS: 99282

== ENCOUNTER 2019-04-14 17:18 | Emergency (ER) | payer MEDICARE, MEDICAID ==
[2019-04-14] MEDS ORDERED: Diph,Pert(Acell),Tet Vac 0.5 ML SYR IM ONE (17:23)
--- NOTE | 2019-04-14 17:25 | Emergency Department Record ---
History of Present Illness - General Chief Complaint: Laceration(s) Stated Complaint: RT HAND PINKIE LAC Time Seen by Provider: 04/14/19 17:23 Source: Patient Mode of Arrival: Ambulatory Limitations: No limitations - History of Present Illness Initial Commments: The patient cut his R hand on a rotary surface grinder wheel a half hour ago. The lac is near the 5th MCP joint dorsally. He denies any numbness and states he has normal ROM to the hand and fingers. His Td is not utd. Onset/Timin -: Minutes(s) - Related Data Previous Rx's Medication Instructions Recorded Cephalexin [Keflex] 500 mg PO QID #28 cap 04/14/19 Allergies Allergy/AdvReac Type Severity Reaction Status Date / Time codeine Allergy Mild MIGRAINES Verified 02/26/19 18:13 propoxyphene napsylate Allergy Mild ABDOMINAL Verified 02/26/19 18:13 [From Darvocet-N] PAIN metaxalone [From Skelaxin] Allergy Unknown PT UNSURE Verified 02/26/19 18:13 OF REACTION Past Medical History - SOCIAL HISTORY Smoking Status: Former smoker Drug Use: None - RESPIRATORY Hx Respiratory Disorders: No - CARDIOVASCULAR Hx Cardio Disorders: Yes Hx Hypertension: Yes - NEURO Hx Neuro Disorders: No - GI Hx GI Disorders: Yes Hx Reflux: Yes - Hx Genitourinary Disorders: Yes Hx Kidney Stones: Yes - ENDOCRINE Hx Endocrine Disorders: Yes Hx Diabetes: Yes ("they say I am diabetic") - MUSCULOSKELETAL Hx Musculoskeletal Disorders: Yes Hx Back Injury: Yes Comment:: has only 1 bone in R lower leg-removed 1 for bone graft - PSYCH Hx Psych Problems: Yes Hx Anxiety: Yes Comment:: bipolar - HEMATOLOGY/ONCOLOGY Hx Hematology/Oncology Disorders: No Family Medical History Family Hx Comment (NOT TO BE USED IN PLACE OF ITEMS BELOW): Arthritis- w/siblings and parents Hx Depression: Father, Mother, Brother/Sister Hx HTN: Mother, Brother/Sister Physical Exam - General General Appearance: Alert, Oriented x3, Cooperative, No acute distress - Head Head exam: Atraumatic, Normocephalic, Normal inspection - Eye Eye exam: Normal appearance, PERRL - Extremities Extremities exam: negative: Normal inspection (there is a 3 cm lac over the R 5th MCP joint. The tissues is basically torn and there is a fair amount of dirt in the wound. There is an obvious tendon laceration present. The patient is able to feel light touch distal to the wound but it feels different from the dorsal 3rd and 4th fingers. ) Image of Hand: 1 - Area of laceration. Course - Reevaluation(s) Reevaluation #1: Procedure note: The R hand lac was anesth. with Lido 1% with Epi. The wound edges were debrided of devitalized tissue. The wound was extensively lavaged and explored. There was a fair amount of dirt in the wound that was removed. There also was an extensor tendon lac which involved at least 50% of the tendon. The lac was then closed with 5 4.0 nylon sutures. There were no complications. 04/14/19 17:52 Reevaluation #2: I did discuss the case with Dr. Bowman and he will see the patient in F/U. 04/14/19 18:42 Disposition Disposition: Discharge Clinical Impression: Hand laceration involving tendon Qualifiers: Encounter type: initial encounter Laterality: right Qualified Code(s): S61.411A - Laceration without foreign body of right hand, initial encounter Disposition: Home, Self-Care Condition: (2) Stable Instructions: Laceration (ED) Additional Instructions: Keep dry and elevated. Please see Dr. Bowman for recheck later this week, call for an appointment. Take the Keflex as directed and use Tylenol for pain. Prescriptions: Cephalexin [Keflex] 500 mg PO QID #28 cap Referrals: MOISES BOWMAN M.D. [MEDICAL DOCTOR] - Forms: Patient Portal Access Time of Disposition: 18:27 Quality - Quality Measures Quality Measures: N/A - Blood Pressure Screening View Details: Yes Does Patient Have Any of the Following: No Blood Pressure Classification: Hypertensive Reading Systolic Measurement: 141 Diastolic Measurement: 106 Screening for High Blood Pressure: < First Hypertensive BP, F/U Documented > [G8950] First Hypertensive Follow-up Interventions: Referral to alternative/primary care provider.
[2019-04-14] MEDS ORDERED: CEPHALEXIN 500 MG CAPSULE PO STA (17:50)
== END 2019-04-14 18:43 | disposition home or self-care (01) ==
LOC: ER 17:18
DX: S61.411A Laceration without foreign body of right hand, initial encounter (principal); S66.326A Laceration of extensor muscle, fascia and tendon of right little finger at wrist and hand level, initial encounter; I10 Essential (primary) hypertension; W31.89XA Contact with other specified machinery, initial encounter; Y92.009 Unspecified place in unspecified non-institutional (private) residence as the place of occurrence of the external cause
CPT/HCPCS: 12042; 90715; 96372; 99283; 99284